=== PATIENT | male | born 1940 | race Caucasian/White ===

== ENCOUNTER 2017-03-04 12:22 | Observation (INO) | payer MEDICARE ==
--- NOTE | 2017-03-04 13:03 | C.PDOC ---
History Of Present Illness 76 y/o male with past medical history of HTN and diabetes presents to ER with complaints of abdominal pain and chest pain for 2 weeks. Patient states " Feeling sluggish" but denies fever, chills , N/V/D. Patient was seen my PMD today who sent to ER for evaluation.No other complaints at this time. Time Seen by Provider: 03/04/17 12:48 Chief Complaint (Nursing): Abdominal Pain Past Medical History Reviewed: Historical Data, Nursing Documentation, Vital Signs Vital Signs: Last Vital Signs Temp 97.7 F 03/04/17 12:30 Pulse 93 H 03/04/17 12:30 Resp 18 03/04/17 12:30 BP 146/83 03/04/17 12:30 Pulse Ox 99 03/04/17 13:26 Family History: States: Unknown Family Hx - Social History Hx Alcohol Use: No Hx Substance Use: No - Immunization History Hx Tetanus Toxoid Vaccination: Yes Hx Influenza Vaccination: Yes Hx Pneumococcal Vaccination: No Review Of Systems Except As Marked, All Systems Reviewed And Found Negative. Constitutional: Negative for: Fever, Chills, Sweats Cardiovascular: Positive for: Chest Pain Gastrointestinal: Positive for: Abdominal Pain. Negative for: Nausea, Vomiting , Diarrhea Genitourinary: Negative for: Dysuria Neurological: Negative for: Weakness, Dizziness Physical Exam - Physical Exam Appears: Non-toxic Skin: Normal Color, Warm Head: Atraumatic, Normacephalic Neck: Normal, Normal ROM Cardiovascular: Rhythm Regular Respiratory: Normal Breath Sounds, No Rales, No Rhonchi, No Wheezing, Other ( left bundle branch block) Gastrointestinal/Abdominal: Normal Exam, No Tenderness, No Distention, No Rebound Neurological/Psych: Oriented x3, Normal Speech, Normal Cognition ED Course And Treatment - Laboratory Results Result Diagrams: 03/04/17 13:06 03/04/17 13:06 ECG Rhythm: L BBB O2 Sat by Pulse Oximetry: 99 (Room Air) Pulse Ox Interpretation: Normal Progress Note: Dr. Wynne was notified of evalaution and states patients has history of Bundle Branch Block. Medical Decision Making Medical Decision Making: cp/weakness r/o acs, gastritis pancreatitis, utiDrOleksandr Wynne was notified of evaluation and states Patient has known past medical history of left Bundle Branch Block. request obs for cp 150: pt reassessed. pain free. will obs. Disposition - Disposition Disposition: HOSPITALIZED Disposition Time: 13:50 Condition: STABLE - Clinical Impression Clinical Impression: Chest pain, Abdominal pain - PA / HAND PACKAGER / Resident Statement MD/DO has reviewed & agrees with the documentation as recorded. MD/DO has examined the patient and agrees with the treatment plan. - Scribe Statement The provider has reviewed the documentation as recorded by the Anilibkaiden Lacy All medical record entries made by the Anilibkaiden were at my direction and personally dictated by me. I have reviewed the chart and agree that the record accurately reflects my personal performance of the history, physical exam, medical decision making, and the department course for this patient. I have also personally directed, reviewed, and agree with the discharge instructions and disposition. Decision To Admit - Pt Status Changed To: Hospital Disposition Of: Observation - . Bed Request Type: Telemetry Admitting Physician: Osvaldo Wynne Patient Diagnosis: Chest pain, Abdominal pain
[2017-03-04 13:13] LABS: BASO # 0.1 K/uL (0.0-0.2); BASO % 0.7 % (0.0-2.0); EOS # 0.3 K/uL (0.0-0.7); EOS % 2.5 % (0.0-4.0); HEMATOCRIT 43.6 % (35.0-51.0); LYMPH # 2.3 K/uL (1.0-4.3); LYMPH % 20.9 % (20.0-40.0); MEAN CELL VOLUME 83.6 fL (80.0-94.0); MEAN CORPUSCULAR HEMOGLOBIN 27.5 pg (27.0-31.0); MEAN CORPUSCULAR HGB CONC 32.9 g/dL (33.0-37.0); MEAN PLATELET VOLUME 8.2 fL (7.2-11.7); MONO # 0.6 K/uL (0.0-0.8); MONO % 5.6 % (0.0-10.0); RED CELL DISTRIBUTION WIDTH 13.8 % (11.5-14.5); WHITE BLOOD COUNT 10.9 K/uL (4.8-10.8)
[2017-03-04 13:24] LABS: INR 1.1
[2017-03-04 13:25] LABS: CHLORIDE 92 mmol/L (98-107); POTASSIUM 4.1 mmol/L (3.6-5.2); SODIUM 133 mmol/L (132-148)
[2017-03-04 13:27] LABS: BILIRUBIN,TOTAL 0.4 mg/dL (0.2-1.3); CARBON DIOXIDE 28 mmol/L (22-30); GFR AFRICAN-AMERICAN > 60
[2017-03-04 13:28] LABS: ALB/GLOB RATIO 1.3 (1.0-2.1); ALKALINE PHOSPHATASE 66 U/L (38-126); ALT/SGPT 25 U/L (21-72); AST/SGOT 18 U/L (17-59); BLOOD UREA NITROGEN 20 mg/dL (9-20); CALCIUM 9.5 mg/dl (8.6-10.4); TOTAL PROTEIN 8.1 g/dL (6.3-8.3)
[2017-03-04 13:31] LABS: GLUCOSE,RANDOM 452 mg/dL (75-110)
[2017-03-04] MEDS ORDERED: (Novolin R) Insulin Human Regular 100 units/ml vial IV STA (13:32)
[2017-03-04] MEDS ORDERED: Sodium Chloride 0.9% 500 ML IV ONE (13:33)
[2017-03-04] MEDS ORDERED: Sodium Chloride 0.9% 1,000 ML ONE (14:02)
[2017-03-04] MEDS ORDERED: (Novolin R) Insulin Human Regular 100 units/ml vial ONE (14:02)
[2017-03-04 14:10] VITALS: RESP 20
[2017-03-04 14:20] LABS: RBC URINE < 1 /hpf (0-3); URINE BILIRUBIN NEGATIVE (NEGATIVE); URINE BLOOD NEGATIVE (NEGATIVE); URINE COLOR Yellow (YELLOW); URINE GLUCOSE (UA) 3+ mg/dL (Normal); URINE KETONE TRACE mg/dL (NEGATIVE); URINE LEUKOCYTE ESTERASE NEG Leu/uL (Negative); URINE PROTEIN NEGATIVE (NEGATIVE); URINE UROBILINOGEN NORMAL mg/dL (0.2-1.0); WBC URINE < 1 /hpf (0-5)
[2017-03-04] MEDS: Metoprolol Succinate 12.5 mg XL PO SCH (14:35)
--- NOTE | 2017-03-04 17:08 | RAD ---
PROCEDURE: CHEST RADIOGRAPH, 1 VIEW HISTORY: chest pain COMPARISON: None available. FINDINGS: LUNGS: Clear. PLEURA: No pneumothorax or pleural fluid seen. CARDIOVASCULAR: Normal. OSSEOUS STRUCTURES: No significant abnormalities. VISUALIZED UPPER ABDOMEN: Normal. OTHER FINDINGS: None. IMPRESSION: No active disease.
[2017-03-04] MEDS: (Novolog) Insulin Aspart, Recombinant 100 u/ml 10 ml vial SC SCH ×3 (17:30→21:47)
--- NOTE | 2017-03-04 17:38 | CP.PCM.HP ---
History of Present Illness - History of Present Illness History of Present Illness: Cheif Complain ; weakness, dizziness and cchest pain HPI; 76 y/o male well known to me with past medical history of HTN, hyperlipidemia and diabetes type 2 on insulin non complaint to diet, medication s/p CABG IN 2001 presents to ER with complaints of abdominal pain and chest pain for 2 weeks. Patient states "Feeling sluggish" with dizy spells but denies fever, chills , N/V/D, cough, sore throat. Patient was seen my me today, i sent him to ER for evaluation.No other complaints at this time. Present on Admission - Present on Admission Any Indicators Present on Admission: No Review of Systems - Review of Systems Systems not reviewed;Unavailable: Acuity of Condition - Constitutional Constitutional: Fatigue, Lethargy, Weakness - EENT Eyes: absent: As Per HPI, Blind Spots, Blurred Vision, Change in Vision, Decreased Night Vision, Diplopia, Discharge, Dry Eye, Exophthalmos, Floaters, Irritation, Itchy Eyes, Loss of Peripheral Vision, Pain, Photophobia, Requires Corrective Lenses, Sees Flashes, Spots in Vision, Tunnel Vision, Other Visual Disturbances, Loss of Vision, Other Ears: absent: As Per HPI, Decreased Hearing, Ear Discharge, Ear Pain, Tinnitus, Abnormal Hearing, Disequilibrium, Dizziness, Other Nose/Mouth/Throat: absent: As Per HPI, Epistaxis, Nasal Congestion, Nasal Discharge, Nasal Obstruction, Nasal Trauma, Nose Pain, Post Nasal Drip, Sinus Pain, Sinus Pressure, Bleeding Gums, Change in Voice, Dental Pain, Dry Mouth, Dysphagia, Halitosis, Hoarsness, Lip Swelling, Mouth Lesions, Mouth Pain, Odynophagia, Sore Throat, Throat Swelling, Tongue Swelling, Facial Pain, Neck Pain, Neck Mass, Other - Cardiovascular Cardiovascular: Dyspnea on Exertion, Lightheadedness - Respiratory Respiratory: absent: As Per HPI, Cough, Dyspnea, Hemoptysis, Dyspnea on Exertion , Wheezing, Snoring, Stridor, Pain on Inspiration, Chest Congestion, Excessive Mucous Production, Change in Mucous Color, Pain with Coughing, Other - Gastrointestinal Gastrointestinal: absent: As Per HPI, Abdominal Pain, Belching, Bloating, Change in Bowel Habits, Change in Stool Character, Coffee Ground Emesis, Constipation, Cramping, Diarrhea, Dyspepsia, Dysphagia, Early Satiety, Excessive Flatus, Fecal Incontinence, Heartburn, Hematemesis, Hematochezia, Loose Stools, Melena, Nausea, Odynophagia, Temesmus, Vomiting, Other - Genitourinary Genitourinary: Nocturia, Urinary Frequency - Musculoskeletal Musculoskeletal: Limited Range of Motion, Muscle Cramps, Myalgias - Neurological Neurological: Dizziness - Endocrine Endocrine: Polydipsia, Polyuria Past Patient History - Past Social History Smoking Status: Never Smoked - PSYCHIATRIC Hx Substance Use: No - SURGICAL HISTORY Hx Surgeries: No - ANESTHESIA Hx Anesthesia: No Meds Home Medications: Home Medication List Medication Instructions Recorded Confirmed Type Aspirin [Aspirin Chewable] 81 mg PO DAILY #30 03/05/17 Rx Insulin Aspart/Insulin Aspar 16 units SC ONCE #6 unit 03/05/17 Rx [Novolog Mix 70/30 (70/30 units/ml)] Losartan [Cozaar] 25 mg PO DAILY #30 tab 03/05/17 Rx Metoprolol Succinate XL [Toprol XL] 25 mg PO DAILY #30 tab 03/05/17 Rx Allergies/Adverse Reactions: Allergies Allergy/AdvReac Type Severity Reaction Status Date / Time No Known Allergies Allergy Verified 03/04/17 12:43 Physical Exam - Constitutional Appears: No Acute Distress - Head Exam Head Exam: ATRAUMATIC, NORMAL INSPECTION, NORMOCEPHALIC - Eye Exam Eye Exam: EOMI, Normal appearance, PERRL Pupil Exam: NORMAL ACCOMODATION, PERRL - ENT Exam ENT Exam: Mucous Membranes Dry - Respiratory Exam Respiratory Exam: Clear to Auscultation Bilateral, NORMAL BREATHING PATTERN - GI/Abdominal Exam GI & Abdominal Exam: Normal Bowel Sounds, Soft. absent: Tenderness - Rectal Exam Rectal Exam: Deferred Results - Vital Signs Recent Vital Signs: Last Vital Signs Temp 98.4 F 03/04/17 15:57 Pulse 72 03/04/17 15:57 Resp 20 03/04/17 15:57 BP 151/89 H 03/04/17 15:57 Pulse Ox 99 03/04/17 15:57 - Labs Result Diagrams: 03/04/17 13:06 03/04/17 13:06 Labs: Laboratory Results - last 24 hr 03/04/17 03/04/17 03/04/17 14:09 14:09 14:26 POC Glucose (mg/dL) 346 H Urine Color Yellow Urine Clarity Clear Urine pH 6.0 Ur Specific [place] 1.032 H Urine Protein Negative Urine Glucose (UA) 3+ H Urine Ketones Trace Urine Blood Negative Urine Nitrate Negative Urine Bilirubin Negative Urine Urobilinogen Normal Ur Leukocyte Esterase Neg Urine WBC (Auto) < 1 Urine RBC (Auto) < 1 Urine Osmolality 723 03/04/17 16:31 POC Glucose (mg/dL) 255 H Urine Color Urine Clarity Urine pH Ur Specific [place] Urine Protein Urine Glucose (UA) Urine Ketones Urine Blood Urine Nitrate Urine Bilirubin Urine Urobilinogen Ur Leukocyte Esterase Urine WBC (Auto) Urine RBC (Auto) Urine Osmolality Assessment & Plan (1) Dehydration Status: Acute (2) Hyperglycemia due to type 2 diabetes mellitus Assessment and Plan: pt is non complaint blood sugaar above 400 Status: Acute (3) Abdominal pain Status: Acute (4) Chest pain Assessment and Plan: EKG shows LBBB cardiology eval Status: Acute
--- NOTE | 2017-03-04 19:00 | CON ---
DATE: 03/04/2017 REASON FOR CONSULTATION: Chest pain. HISTORY OF PRESENT ILLNESS: The patient is a 76-year-old male originally from [facility] who has a histo ry of hypertension, diabetes mellitus, coronary artery disease status post coronary artery bypass [facility]. The patient does not recall that hospital or his cardiolog ist and has not followed up with any reporting lead for so many years. He follows with his primary phy sician, Dr. Wynne. He presents with sharp left substernal chest pain. The patient denies any asso ciated diaphoresis or dizziness. The patient denies any productive cough and is unaware of any fever or chills. The patient denies any history of any coronary intervention following his cardiac bypass surgery in 2001. MEDICATIONS: Aspirin 81 mg once a day, Cozaar 25 mg once a day, Crestor 20 mg once a day, NovoLog in sulin, Toprol-XL 12.5 mg once a day. REVIEW OF SYSTEMS: No fever or chills. No vomiting or diarrhea. No dizziness or syncope. PHYSICAL EXAMINATION: GENERAL: The patient is an elderly male who does not appear to be in acute distress. VITAL SIGNS: Blood pressure 160/84, heart rate 79, temperature 97.7, respirations 20. HEENT: Normocephalic. NECK: No JVD. CHEST: Clear. HEART: S1, S2 regular. ABDOMEN: Soft. EXTREMITIES: No edema. No calf tenderness. LABORATORY DATA: SMA-7: Sodium 136, potassium 4.1, chloride 92, CO2 of 28, glucose 452, BUN 20, cre atinine 1.2. One set of troponin is negative. INR is 1.1, PTT 34. CBC: WBC 10.9, hemoglobin 14.3, hematocrit 43.6, platelet count 165,000. Serum ketones are negative. EKG revealed sinus rhythm, le ft bundle branch block. ASSESSMENT: 1. Chest pain, rule out myocardial infarction. 2. Coronary artery disease status post coronary artery bypass surgery in 2001. 3. Uncontrolled diabetes mellitus. RECOMMENDATIONS: Continue aspirin 81 mg once a day, Cozaar 25 mg once a day, Crestor 20 mg once a da y, Toprol-XL 12.5 mg daily, start therapeutic subcutaneous Lovenox at 60 mg twice a day. Obtain an e chocardiogram. Monitor the EKG and serial cardiac enzymes. Mahendra Antunez MD cc: [id number] TT: 03/04/2017 18:59:25 Confirmation # [id number] Dictation # [id number] mn
[2017-03-04] MEDS ORDERED: (Novolog Mix 70/30) Insulin Aspart/Insulin Aspar 100 units/ml SC ONE (21:45)
[2017-03-04] MEDS: Enoxaparin 60 mg Syringe SC SCH (21:49)
[2017-03-05] MEDS: (Novolog) Insulin Aspart, Recombinant 100 u/ml 10 ml vial SC SCH ×3 (08:25→18:04)
[2017-03-05] MEDS: (Novolog Mix 70/30) Insulin Aspart/Insulin Aspar 100 units/ml SC SCH ×2 (08:30→18:02)
--- NOTE | 2017-03-05 09:32 | CP.PCM.PN ---
Subjective - Date & Time of Evaluation Date of Evaluation: 03/05/17 Time of Evaluation: 10:56 - Subjective Subjective: PT SEEN AND EXAMINED, NO ACUTE DOSTRESS, ABDOMINAL PAIN IMPROVED, FEELS NAUSEOUS NO VOMITTING Objective - Vital Signs/Intake and Output Vital Signs (last 24 hours): Temp Pulse Resp BP Pulse Ox 97.6 F 60 20 146/80 98 03/05/17 04:38 03/05/17 04:38 03/05/17 04:38 03/05/17 04:38 03/05/17 04:38 Intake and Output: 03/05/17 03/05/17 06:59 18:59 Intake Total 480 Balance 480 - Medications Medications: Current Medications Aspirin (Aspirin Chewable) 81 mg PO DAILY [facility] Last Admin: 03/04/17 14:10 Dose: Not Given Enoxaparin Sodium (Lovenox) 60 mg SC Q12 [facility] Last Admin: 03/04/17 21:49 Dose: 60 mg Insulin Aspart (Novolog) 0 unit SC ACHS [facility] PRN Reason: Protocol Last Admin: 03/05/17 08:25 Dose: 2 unit Insulin Aspart (Novolog Mix 70/30 (70/30 Units/Ml)) 14 units SC ACBD [facility] Losartan Potassium (Cozaar) 25 mg PO DAILY [facility] Metoprolol Succinate (Toprol Xl) 12.5 mg PO DAILY [facility] Last Admin: 03/04/17 14:35 Dose: 12.5 mg Rosuvastatin Calcium (Crestor) 20 mg PO HS [facility] Last Admin: 03/04/17 21:44 Dose: 20 mg - Labs Labs: PT 12.4 SECONDS (9.7-12.2) H 03/04/17 13:06 INR 1.1 03/04/17 13:06 APTT 34 SECONDS (21-34) 03/04/17 13:06 - Constitutional Appears: Well - Head Exam Head Exam: ATRAUMATIC, NORMAL INSPECTION, NORMOCEPHALIC - Eye Exam Eye Exam: EOMI, Normal appearance, PERRL Pupil Exam: NORMAL ACCOMODATION, PERRL - Respiratory Exam Respiratory Exam: Clear to Ausculation Bilateral, NORMAL BREATHING PATTERN - Cardiovascular Exam Cardiovascular Exam: REGULAR RHYTHM, +S1, +S2. absent: Murmur - GI/Abdominal Exam GI & Abdominal Exam: Soft, Normal Bowel Sounds. absent: Tenderness Assessment and Plan (1) Dehydration Status: Acute (2) Hyperglycemia due to type 2 diabetes mellitus Status: Acute (3) Abdominal pain Status: Acute (4) Chest pain Status: Acute
[2017-03-05] MEDS ORDERED: Enoxaparin 30 mg Syringe SC SCH (10:00)
[2017-03-05] MEDS: Enoxaparin 60 mg Syringe SC SCH (10:10)
[2017-03-05] MEDS: Metoprolol Succinate 12.5 mg XL PO SCH (10:10)
--- NOTE | 2017-03-05 17:53 | PN ---
DATE: 03/05/2017 SUBJECTIVE: The patient denies any chest pain or shortness of breath. PHYSICAL EXAMINATION: VITAL SIGNS: Blood pressure 146/ , heart rate , temperature 97.6, respiration 20. HEENT: Normocephalic. NECK: No JVD. CHEST: Clear. HEART: S1, S2 regular. ABDOMEN: Soft. EXTREMITIES: No edema. LABORATORIES: Blood sugars today are 315, 236 and 269. Three sets of troponins are negative. TSH l evel is within normal limit. ASSESSMENT: 1. Chest pain, myocardial infarction is ruled out. 2. Coronary artery disease status post coronary artery bypass surgery in 2001. 3. Uncontrolled hypertension. RECOMMENDATIONS: Continue current aspirin 81 mg once a day, Cozaar 25 mg once a day, Crestor 20 mg a t bedtime, and Toprol-XL at 12.5 mg daily. Obtain repeat 12-lead EKG and this patient is scheduled t o undergo an echocardiogram study tomorrow. Start Lovenox 30 mg daily. Mahendra Antunez MD cc: [id number] TT: 03/05/2017 17:52:41 Confirmation # [id number] Dictation # [id number]
[2017-03-05 19:37] VITALS: BP 117/70; PULSE 111; TEMP 98.4; O2SAT 96
--- NOTE | 2017-03-07 00:01 | CARD ---
APPROVED REPORT EKG Measurement Heart [id number] <Conclusion> Normal sinus rhythm Possible Left atrial enlargement Left bundle branch block Abnormal ECG
--- NOTE | 2017-03-09 15:06 | CARD ---
APPROVED REPORT EKG Measurement Heart [id number] <Conclusion> Normal sinus rhythm Right atrial enlargement Left bundle branch block Abnormal ECG
--- NOTE | 2017-03-28 13:32 | CP.PCM.DIS ---
Provider - Provider Date of Admission: 03/04/17 13:51 Attending physician: Osvaldo Wynne MD Time Spent in preparation of Discharge (in minutes): 22 Diagnosis - Discharge Diagnosis (1) Dehydration Status: Acute (2) Hyperglycemia due to type 2 diabetes mellitus Status: Acute (3) Abdominal pain Status: Acute (4) Chest pain Status: Acute Hospital Course - Lab Results Lab Results: Most Recent Lab Values WBC 10.9 K/uL (4.8-10.8) H 03/04/17 13:06 RBC 5.21 Mil/uL (4.40-5.90) 03/04/17 13:06 Hgb 14.3 g/dL (12.0-18.0) 03/04/17 13:06 Hct 43.6 % (35.0-51.0) 03/04/17 13:06 MCV 83.6 fL (80.0-94.0) 03/04/17 13:06 MCH 27.5 pg (27.0-31.0) 03/04/17 13:06 MCHC 32.9 g/dL (33.0-37.0) L 03/04/17 13:06 RDW 13.8 % (11.5-14.5) 03/04/17 13:06 Plt Count 265 K/uL (130-400) 03/04/17 13:06 MPV 8.2 fL (7.2-11.7) 03/04/17 13:06 Neut % (Auto) 70.3 % (50.0-75.0) 03/04/17 13:06 Lymph % (Auto) 20.9 % (20.0-40.0) 03/04/17 13:06 Rush % (Auto) 5.6 % (0.0-10.0) 03/04/17 13:06 Eos % (Auto) 2.5 % (0.0-4.0) 03/04/17 13:06 Baso % (Auto) 0.7 % (0.0-2.0) 03/04/17 13:06 Neut # 7.7 K/uL (1.8-7.0) H 03/04/17 13:06 Lymph # 2.3 K/uL (1.0-4.3) 03/04/17 13:06 Rush # 0.6 K/uL (0.0-0.8) 03/04/17 13:06 Eos # 0.3 K/uL (0.0-0.7) 03/04/17 13:06 Baso # 0.1 K/uL (0.0-0.2) 03/04/17 13:06 PT 12.4 SECONDS (9.7-12.2) H 03/04/17 13:06 INR 1.1 03/04/17 13:06 APTT 34 SECONDS (21-34) 03/04/17 13:06 Sodium 133 mmol/L (132-148) 03/04/17 13:06 Potassium 4.1 mmol/L (3.6-5.2) 03/04/17 13:06 Chloride 92 mmol/L (98-107) L 03/04/17 13:06 Carbon Dioxide 28 mmol/L (22-30) 03/04/17 13:06 Anion Gap 17 (10-20) 03/04/17 13:06 BUN 20 mg/dL (9-20) 03/04/17 13:06 Creatinine 1.2 MG/DL (0.8-1.5) 03/04/17 13:06 Est GFR ( Amer) > 60 03/04/17 13:06 Est GFR (Non-Af Amer) 59 03/04/17 13:06 POC Glucose (mg/dL) 285 mg/dL (65-110) H 03/05/17 17:28 Random Glucose 452 mg/dL (75-110) H* 03/04/17 13:06 Calcium 9.5 mg/dl (8.6-10.4) 03/04/17 13:06 Total Bilirubin 0.4 mg/dL (0.2-1.3) 03/04/17 13:06 AST 18 U/L (17-59) 03/04/17 13:06 ALT 25 U/L (21-72) 03/04/17 13:06 Alkaline Phosphatase 66 U/L (38-126) 03/04/17 13:06 Total Creatine Kinase 44 U/L (55-170) L 03/05/17 01:11 CK-MB (Mass) 0.66 ng/mL (0.0-3.38) 03/05/17 01:11 Troponin I 0.0300 ng/mL (0.00-0.120) 03/04/17 13:06 Troponin I, Quant 0.0250 ng/mL (0.00-0.120) 03/05/17 01:11 Total Protein 8.1 g/dL (6.3-8.3) 03/04/17 13:06 Albumin 4.5 g/dL (3.5-5.0) 03/04/17 13:06 Globulin 3.6 gm/dL (2.2-3.9) 03/04/17 13:06 Albumin/Globulin Ratio 1.3 (1.0-2.1) 03/04/17 13:06 Lipase 79 U/L (23-300) 03/04/17 13:06 TSH 3rd Generation 1.20 mIU/L (0.46-4.68) 03/04/17 19:48 Urine Color Yellow (YELLOW) 03/04/17 14:09 Urine Clarity Clear (Clear) 03/04/17 14:09 Urine pH 6.0 (5.0-8.0) 03/04/17 14:09 Ur Specific [place] 1.032 (1.003-1.030) H 03/04/17 14:09 Urine Protein Negative mg/dL (NEGATIVE) 03/04/17 14:09 Urine Glucose (UA) 3+ mg/dL (Normal) H 03/04/17 14:09 Urine Ketones Trace mg/dL (NEGATIVE) 03/04/17 14:09 Urine Blood Negative (NEGATIVE) 03/04/17 14:09 Urine Nitrate Negative (NEGATIVE) 03/04/17 14:09 Urine Bilirubin Negative (NEGATIVE) 03/04/17 14:09 Urine Urobilinogen Normal mg/dL (0.2-1.0) 03/04/17 14:09 Ur Leukocyte Esterase Neg Jenn/uL (Negative) 03/04/17 14:09 Urine WBC (Auto) < 1 /hpf (0-5) 03/04/17 14:09 Urine RBC (Auto) < 1 /hpf (0-3) 03/04/17 14:09 Urine Osmolality 723 mosm/kg (300-1000) 03/04/17 14:09 Serum Ketones Negative (NEGATIVE) 03/04/17 13:06 Discharge Exam - Head Exam Head Exam: ATRAUMATIC, NORMAL INSPECTION, NORMOCEPHALIC - Eye Exam Eye Exam: EOMI, Normal appearance, PERRL Pupil Exam: NORMAL ACCOMODATION, PERRL - ENT Exam ENT Exam: Mucous Membranes Moist - Respiratory Exam Respiratory Exam: NORMAL BREATHING PATTERN - Cardiovascular Exam Cardiovascular Exam: REGULAR RHYTHM - GI/Abdominal Exam GI & Abdominal Exam: Normal Bowel Sounds - Rectal Exam Rectal Exam: Deferred Discharge Plan - Discharge Medications Prescriptions: Aspirin [Aspirin Chewable] 81 mg PO DAILY #30 Losartan [Cozaar] 25 mg PO DAILY #30 tab Insulin Aspart/Insulin Aspar [Novolog Mix 70/30 (70/30 units/ml)] 16 units SC ONCE #6 unit Metoprolol Succinate XL [Toprol XL] 25 mg PO DAILY #30 tab - Follow Up Plan Condition: STABLE Disposition: HOME/ ROUTINE Instructions: Metoprolol (By mouth), Insulin Aspart Protamine/Insulin Aspart ( By injection), Rosuvastatin (By mouth), Chest Pain (DC), Dehydration (DC), Heart Healthy Diet (DC), Diabetes Mellitus Type 2 in Adults (DC), Meal Planning with Diabetes Exchanges (DC), Acute Abdominal Pain (DC) Additional Instructions: Follow up with Dr. Wynne in one week. Return to hospital if any symptoms reoccur. Referrals: Osvaldo Wynne MD [Staff Provider] -
== END 2017-03-05 22:02 | disposition home or self-care (01) ==
LOC: C.ER 12:22 → C.9E 13:51 → C.6T 14:04
PROVIDERS: ADMIT Internal Medicine; ATTEND Internal Medicine
DX: R07.9 Chest pain, unspecified (principal); R10.9 Unspecified abdominal pain; I25.10 Atherosclerotic heart disease of native coronary artery without angina pectoris; Z95.1 Presence of aortocoronary bypass graft; E11.9 Type 2 diabetes mellitus without complications; Z79.4 Long term (current) use of insulin; I10 Essential (primary) hypertension
CPT/HCPCS: 36415; 71010; 80053; 81001; 82009; 82948; 83690; 83935; 84443; 84484; 85025; 85610; 85730; 99285; G0378; J1650; J7040

== ENCOUNTER 2018-12-19 09:32 | Outpatient (CLI) | payer MEDICARE | END 2018-12-19 09:33 | disposition home or self-care (01) | LOC: C.VASC 09:32 | DX: I73.9 Peripheral vascular disease, unspecified (principal) ==